=== PATIENT | male | born 1950 | race Caucasian/White ===

== ENCOUNTER 2020-11-22 09:38 | Emergency (ER) | payer OTHER, MEDICARE ==
[2020-11-22 10:02] VITALS: BP 117/69; PULSE 70; TEMP 97.6; BMI 28.6
[2020-11-22] MEDS ORDERED: KETOROLAC TROMETHAMINE 15 MG/ML VIAL IM ONE (10:33)
[2020-11-22] MEDS ORDERED: ACETAMINOPHEN 500 MG TABLET (FP) PO ONE (10:33)
[2020-11-22] MEDS ORDERED: LIDOCAINE 5% TOPICAL PATCH TP ONE (10:33)
[2020-11-22] MEDS ORDERED: LIDOCAINE 5% TOPICAL PATCH ONE (10:37)
[2020-11-22] MEDS ORDERED: ACETAMINOPHEN 325 MG TABLET (FP) ONE (10:37)
[2020-11-22] MEDS ORDERED: KETOROLAC TROMETHAMINE 30 MG/1 ML VIAL ONE (10:37)
[2020-11-22] MEDS ORDERED: LIDOCAINE PATCH REMOVAL MC SCH (22:00)
== END 2020-11-22 11:41 | disposition home or self-care (01) ==
LOC: EDBD 09:38 → JER 09:38
PROC: 3E0233Z Introduction of Anti-inflammatory into Muscle, Percutaneous Approach (ICD-10-PCS; principal; 2020-11-22)
DX: S46.812A Strain of other muscles, fascia and tendons at shoulder and upper arm level, left arm, initial encounter (principal); M25.512 Pain in left shoulder; X50.0XXA Overexertion from strenuous movement or load, initial encounter
CPT/HCPCS: 96372; 99284-25

== ENCOUNTER 2021-02-10 13:47 | Emergency (ER) | payer OTHER, MEDICARE | END 2021-02-10 14:17 | disposition home or self-care (01) | LOC: JERFT 13:47 | DX: Z11.52 Encounter for screening for COVID-19 (principal) | CPT/HCPCS: 99283-25; C9803; U0003; U0005 ==